=== PATIENT | male | born 1960 | race Caucasian/White ===

== ENCOUNTER 2018-02-10 15:33 | Emergency (ER) | payer SELFPAY ==
[~2018-02-10] VITALS: Ht 180.3 cm; Wt 107.5 kg
[2018-02-10 15:47] VITALS: Ht 180.3 cm; Wt 107.5 kg
[2018-02-10 19:11] LABS: BASOPHIL % 0.3 % (0-2); PLATELET COUNT 282 x10^3mcL (130-400); RED CELL DISTRIBUTION WIDTH 14.4 % (11.5-14.5)
[2018-02-10 19:25] LABS: CARBON DIOXIDE 27.3 mmol/L (21-32); CHLORIDE SERUM 101 mmol/L (98-107); CREATININE SERUM 0.8 mg/dL (0.7-1.3); GFR1 > 60 mL/min; GLUCOSE SERUM 100 mg/dL (74-106); POTASSIUM SERUM 3.9 mmol/L (3.5-5.1); SODIUM SERUM 136 mmol/L (136-145)
[2018-02-10 19:29] LABS: ALBUMIN 3.3 g/dL (3.4-5.0); ALKALINE PHOSPHATASE 93 U/L (46-116); ALT/SGPT 22 U/L (16-63); AMYLASE 31 U/L (25-115); AST/SGOT 16 U/L (15-37); BILIRUBIN TOTAL 0.8 mg/dL (0.20-1.00); LIPASE 151 IU/L (73-393); TOTAL PROTEIN, SERUM 7.3 g/dL (6.4-8.2)
[2018-02-10 19:42] LABS: microscopic required? YES; urine erythrocyte TRACE (NEGATIVE)
[2018-02-10 20:45] VITALS: BP 149/85
== END 2018-02-10 20:45 | disposition home or self-care (01) ==
LOC: ED 15:33
PROVIDERS: Emergency Medicine
DX: R10.13 Epigastric pain (principal); R11.10 Vomiting, unspecified; I10 Essential (primary) hypertension; E78.00 Pure hypercholesterolemia, unspecified
CPT/HCPCS: J1885; J7030; Q0092; Q0162